=== PATIENT | female | born 1975 | race Caucasian/White ===

== ENCOUNTER 2023-06-23 07:52 | Outpatient (CLI) | payer MEDICAID, SELFPAY ==
--- NOTE | 2023-06-23 07:59 | MR_ITS ---
WS: [id number] MRI LUMBAR SPINE NONCONTRAST HISTORY: CHRONIC LOW BACK PAIN COMPARISON: None available. TECHNIQUE: Sagittal and axial multisequence imaging is submitted. Thoracic disc protrusions contact the ventral cord at T6-7, T7-8 and T8-9. Normal lumbar alignment with no compression fractures or marrow edema. Disc spaces and vertebral body heights are well-preserved. Conus terminates normally at L1-2 disc level. L1-L2: Normal. L2-L3: No stenosis. Mild facet arthritis. L3-L4: Mild annular disc bulging encroaching upon the ventral thecal sac and the traversing L4 nerve roots. Slightly greater encroachment upon the traversing RIGHT L4 nerve root. Mild facet and ligament um flavum arthritis. L4-L5: Mild annular disc bulging with a moderate central disc protrusion contacting and displacing th e thecal sac and the traversing L5 nerve roots. Moderate central with bilateral subarticular recess s tenosis. No significant foraminal stenosis. There is advanced facet joint arthritis and ligamentum fl avum hypertrophy. L5-S1: Mild annular disc bulging with a central disc protrusion contacting the ventral thecal sac and the traversing RIGHT S1 nerve root. Mild central with bilateral subarticular recess and mild foramin al stenosis, LEFT greater than RIGHT. Severe facet joint arthritis. There are mild inflammatory changes and synovitis involving the facet joints at L4-5 and L5-S1. IMPRESSION: 1. L4-5: Moderate central with bilateral subarticular recess stenosis. Moderate size central disc pr otrusion contributing to the stenosis contacting the traversing L5 nerve roots. 2. L5-S1: Shallow central disc protrusion with minimal contact on the traversing RIGHT S1 nerve root . Mild central and bilateral subarticular recess and foraminal stenosis. Slightly greater LEFT forami nal stenosis in the RIGHT. 3. Advanced facet joint arthritis at L4-5 and L5-S1 with synovitis. 4. L3-4: Mild disc encroachment upon the traversing L4 nerve roots. 5. Thoracic spine disc protrusions at T6-7, T7-8 and T8-9.
== END 2023-06-23 07:53 | disposition home or self-care (01) ==
LOC: RAD 07:53
PROVIDERS: PCP Family Medicine; Visit Provider Family Medicine
DX: M48.061 Spinal stenosis, lumbar region without neurogenic claudication (principal); M51.24 Other intervertebral disc displacement, thoracic region
CPT/HCPCS: 72148

== ENCOUNTER → 2023-09-17 14:59 | Outpatient (BNVA) | payer MEDICAID, SELFPAY | PROVIDERS: PCP Family Medicine; Visit Provider Internal Medicine Cardiovascular Disease | DX: R07.9 Chest pain, unspecified (principal) | CPT/HCPCS: 93005 ==

== ENCOUNTER 2023-11-24 09:15 | Outpatient (CLI) | payer MEDICAID, SELFPAY ==
--- NOTE | 2023-11-24 09:15 | USCV_ITS ---
Jessicamila Bonny Age: 48 Gender: F : 1975 Exam Date: 11/24/2023 09:35 Ordering Phys: Khanh Burns M.D ([email or web address]) Technologist: CT Exam [place] [facility] [place]: BP: 122 / 88 HR: 62 Rhythm: Sinus Technical Quality: Adequate MEASUREMENTS (Male / Female) Normal Values 2D ECHO LVOT Diameter 2.0 cm LV Ejection Fraction MOD 4C 59.5 % LV Ejection Fraction MOD 2C 69.1 % LV Ejection Fraction 2C AL 69.3 % LA Diameter 2.7 cm RA Systolic Volume 4C AL 31.0 ml RA Systolic Volume 4C MOD 30.1 ml LA Sys Volume AL 41.2 cm cubed LA Sys Volume Index AL 21.5 cm cubed/m squared Aorta at Sinotubular Diameter 2.7 cm IVC Diameter 1.8 cm M-MODE LA Ao Ratio MM 1.0 AV Cusp Separation MM 2.1 cm DOPPLER AV Peak Velocity 156.0 cm/s LVOT Peak Velocity 108.0 cm/s AV Area Cont Eq vti 2.7 cm squared AV Area Cont Eq pk 2.2 cm squared MV Peak Velocity 95.0 cm/s MV Area PHT 3.1 cm squared Mitral E to A Ratio 1.1 TV Peak Velocity 149.5 cm/s TR Peak Velocity 166.0 cm/s TR Peak Gradient 11.0 mmHg TV Peak E Velocity 79.0 cm/s Right Atrial Pressure 3.0 mmHg Pulmonary Artery Systolic Pressu 14.0 mmHg PV Peak Velocity 88.0 cm/s FINDINGS Left Ventricle Left ventricle is normal in size. LV systolic function is normal with EF 55 to 60%. No regional wall motion abnormalities are seen. Right Ventricle The right ventricle is normal in size and function. Right Atrium The right atrium is normal in size. Left Atrium The left atrium is normal in size. Mitral Valve Structurally normal mitral valve. Mild mitral regurgitation. Aortic Valve Structurally normal aortic valve without significant sclerosis or stenosis. There is no aortic regurgitation. Tricuspid Valve Insufficient TR jet to calculate RVSP. Pulmonic Valve Not well-visualized Pericardium Normal pericardium without effusion. Aorta Normal ascending aorta dimension. IVC The inferior vena cava appears normal. CONCLUSIONS LV systolic function is normal with EF of 55 to 60%. Mild mitral regurgitation. No comparison studies are available Khanh Burns MD (Electronically Signed) Final Date: 30 November 2023 17:10 S
== END 2023-11-24 09:16 | disposition home or self-care (01) ==
PROVIDERS: PCP Family Medicine; Visit Provider Internal Medicine
DX: R07.9 Chest pain, unspecified (principal); I47.10 Supraventricular tachycardia, unspecified; Z01.818 Encounter for other preprocedural examination; I34.0 Nonrheumatic mitral (valve) insufficiency
CPT/HCPCS: 93306